=== PATIENT | male | born 1975 | race Caucasian/White ===

== ENCOUNTER 2017-07-16 10:54 | Observation (INO) ==
[2017-07-16] MEDS ORDERED: Ondansetron 4 MG/2 ML VIAL IVP ONE (11:25)
--- NOTE | 2017-07-16 11:25 | Emergency Department Note ---
Disposition Clinical Impression: Gastroenteritis, Tachycardia Disposition: Admitted As Inpatient Condition: Fair Referrals: Shirley Austin CNP [Primary Care Provider] - Forms: ED Satisfaction Letter Nausea/Vomiting/Diarrhea HPI - General Chief complaint: ED Nausea/Vomiting/Diarrhea Stated complaint: FEVER,VOMITING , DIARRHEA Time Seen by Provider: 07/16/17 11:19 Source: patient, family Mode of arrival: private vehicle Limitations: no limitations Nursing Notes Reviewed: Yes Vital Signs Reviewed: Yes - History of Present Illness HPI Narrative: The patient relates that he started to feel ill yesterday evening. He had a headache followed by nausea, vomiting and diarrhea. He's had decreased oral intake and progressive weakness and malaise. He has had very harsh cough is nonproductive. He denies chest soreness and severe body aches that are diffuse. He has had fevers and chills and a temperature that has been climbing this morning. He is not sure of any specific ill exposures that he states he waited in the waiting room at [facility] most of Saturday while his had a partial hysterectomy. He does not have any ongoing respiratory problems. He does feel short of breath and is requiring 2 L nasal cannula to maintain a saturation of 93%. Pt Subjective Complaint: nausea, vomiting, diarrhea Onset (ago): hour(s) Description of emesis: food contents Description of Diarrhea: water Associated Abdominal Pain: Yes If pain, Location of pain: diffuse Severity: mild, moderate Quality: cramping Consistency: intermittent Improves with: nothing Worsens with: nonthing Context: sick contacts Associated symptoms: Reports: myalgias, cough, fever/chills, headaches, loss of appetite, malaise, nausea/vomiting, shortness of breath, weakness. Denies: chest pain, diaphoresis, rash, dysuria, syncope - Related Data Allergies Allergy/AdvReac Type Severity Reaction Status Date / Time aspirin [ASA] Allergy Hives Verified 02/09/17 21:45 codeine Allergy Hives Verified 02/09/17 21:45 Penicillins [PCN] Allergy Hives Verified 02/09/17 21:45 All systems ED: reviewed and negative except as stated. Past Medical History - Past Medical History Attestation: Yes The following information was validated with the patient. Source: patient, obtained from family, nursing notes reviewed Medical history: Reports: GERD Surgical history: Reports: cholecystectomy, orthopedic, other (Right shoulder) Psychiatric history: Reports: anxiety - Social History Smoking Status: Current every day smoker Smokeless Tobacco Status: No Alcohol use: Reports: none Drug use: Reports: none Physical Exam - General Limitations: no limitations General appearance: alert, in distress (Pale and dyspneic) - Head Head exam: atraumatic, normocephalic, normal inspection - Eye Eye exam: Present: normal appearance, PERRL, EOMI, conjunctival injection. Absent: scleral icterus - ENT ENT exam: normal exam, normal oropharynx, mucous membranes moist - Neck Neck exam: Present: normal inspection, full ROM, trachea midline. Absent: tenderness, meningismus, lymphadenopathy - Chest Chest inspection: Present: normal inspection, symmetric chest wall rise - Respiratory Respiratory exam: Present: normal lung sounds bilaterally, other (Occasional harsh cough). Absent: respiratory distress, wheezes, prolonged expiratory phase - Cardiovascular Cardiovascular exam: Present: regular rate, normal rhythm, tachycardia, normal heart sounds - Abdominal Exam Abdominal exam: Present: soft, Non-Tender, normal bowel sounds. Absent: tenderness, distention, guarding, rebound, rigidity, Jose's sign, tenderness at McBurney's Point - Extremities Exam Extremities exam: Present: normal inspection, full ROM, normal capillary refill. Absent: tenderness, pedal edema, calf tenderness - Expanded Lower Extremity Exam Neurovascular/Tendon exam: Present: normal capillary refill. Absent: motor deficit, sensory deficit, tendon deficit Gait: observed and normal - Back Exam Back exam: Present: normal inspection, full ROM. Absent: tenderness, CVA tenderness (R), CVA tenderness (L) - Neurological Exam Neurological exam: Present: alert, oriented X3 - Psychiatric Psychiatric exam: Present: normal affect, normal mood - Skin Skin exam: Present: warm, dry, intact, pallor. Absent: cyanosis, diaphoresis Course Course Narrative: 1335: Lab results have been discussed with the patient. He continues with some intermittent gagging, tachycardia and generalize backaches, body aches and malaise. I feel he will need to continue with some IV fluid hydration as well as supplemental oxygenation as needed. I placed a page to Dr. Manrique to discuss this possible inpatient observation. 1338: Care is discussed with Dr. Manrique. Verbal orders have been obtained for this patient's observation. Vital Signs Temperature 102 F H 07/16/17 10:56 Pulse Rate 127 07/16/17 10:56 Respiratory Rate 18 07/16/17 10:56 Blood Pressure 138/80 07/16/17 10:56 O2 Sat by Pulse Oximetry 93 07/16/17 10:56 Temperature 101.2 F H 07/16/17 13:25 Pulse Rate 114 07/16/17 13:25 Respiratory Rate 27 07/16/17 13:25 Blood Pressure 116/78 07/16/17 13:25 O2 Sat by Pulse Oximetry 98 07/16/17 13:25 Oxygen Delivery Oxygen Delivery Nasal Cannula Nausea/Vomiting/Diarrhea - Differential Diagnosis Likely: food poisoning, gastroenteritis (Influenza), dehydration - Lab Data Lab results reviewed: Yes I reviewed the patient's lab results. Lab results narrative: Influenza A and influenza B are negative. Result diagrams: 07/16/17 11:35 07/16/17 11:35 Lab Results 07/16/17 07/16/17 07/16/17 Range/Units 11:35 11:35 11:35 WBC 7.5 (4.3-11.1) K/mcL RBC 5.13 (4.19-5.50) M/mcL Hgb 15.3 (12.9-16.9) g/dL Hct 44.2 (37.5-50.1) % MCV 86.2 (83.0-100.0) fL MCH 29.8 (28.0-33.3) pg MCHC 34.6 (31.6-35.5) g/dL RDW 13.4 (11.5-14.5) % Plt Count 194 (140-400) K/mcL MPV 10.5 (9.4-12.4) fL Immature Gran % 0.7 (0-4) % Seg Neutrophils % 83.1 % Lymphocytes % 6.6 % Monocytes % 8.3 % Eosinophils % 0.9 % Basophils % 0.4 % Neutrophils # 6.2 (1.6-8.9) K/mcL Lymphocytes # 0.5 L (0.6-4.6) K/mcL Monocytes # 0.6 (0.0-1.3) K/mcL Eosinophils # 0.1 (0.0-0.6) K/mcL Basophils # 0.0 (0.0-0.2) K/mcL Sodium 135 L (136-145) mEq/L Potassium 4.2 (3.5-5.1) mEq/L Chloride 104 (98-107) mEq/L BUN 12 (6-20) mg/dL Creatinine 1.08 (0.70-1.30) mg/dL Est GFR ( Amer) > 60 (> 60) Est GFR (Non-Af Amer) > 60 (> 60) BUN/Creatinine Ratio 11 (6-26) Glucose 119 H (70-105) mg/dL Calculated Osmolality 281 (280-300) Lactic Acid 2.2 (0.5-2.2) mmol/L Calcium 9.9 (8.6-10.3) mg/dL - Radiology Data Radiology results reviewed: Yes I reviewed the patient's radiology results. Single view chest x-ray is performed. This does not demonstrate evidence for infiltrate, effusion, pneumothorax, foreign body or heart failure. The cardiac silhouette is normal. I do not see abnormality to the osseous structures of the chest. This is on my interpretation. Impressions Chest X-Ray 07/16/17 11:25 IMPRESSION: No acute cardiopulmonary disease D/ / Andriy Carter MD / Andriy Carter MD Interpreting Provider: Andriy Carter MD
[2017-07-16] MEDS ORDERED: 0.9 % Sodium Chloride 1,000 ML IVC SCH ×4 (11:30→14:37)
[2017-07-16] MEDS ORDERED: *HR* OxyCODONE Immed Rel 5 MG TABLET PO ONE ×3 (12:16→14:37)
[2017-07-16 12:21] LABS: Basophils % 0.4 %; Eosinophils # 0.1 K/mcL (0.0-0.6); Eosinophils % 0.9 %; Hematocrit 44.2 % (37.5-50.1); Hemoglobin 15.3 g/dL (12.9-16.9); Immature Granulocytes % 0.7 % (0-4); Lymphocytes # 0.5 K/mcL (0.6-4.6); Lymphocytes % 6.6 %; Mean Corpuscular HGB Conc 34.6 g/dL (31.6-35.5); Mean Corpuscular Hemoglobin 29.8 pg (28.0-33.3); Mean Corpuscular Volume 86.2 fL (83.0-100.0); Mean Platelet Volume 10.5 fL (9.4-12.4); Monocytes # 0.6 K/mcL (0.0-1.3); Monocytes % 8.3 %; Neutrophils # 6.2 K/mcL (1.6-8.9); Platelet Count 194 K/mcL (140-400); Red Blood Count 5.13 M/mcL (4.19-5.50); Red Cell Distribution Width 13.4 % (11.5-14.5); Segmented Neutrophils % 83.1 %
[2017-07-16 13:20] LABS: BUN/Creatinine Ratio 11 (6-26); Blood Urea Nitrogen 12 mg/dL (6-20); Calcium 9.9 mg/dL (8.6-10.3); Chloride 104 mEq/L (98-107); Glucose 119 mg/dL (70-105); Osmolality,Calculated 281 (280-300); Potassium 4.2 mEq/L (3.5-5.1); Sodium 135 mEq/L (136-145); eGFR For Non-African Americans > 60 (> 60)
[2017-07-16] MEDS ORDERED: *HR* LORazepam 2 MG/ML VIAL IVP ONE (13:54)
[2017-07-16] MEDS ORDERED: *HR* HYDROcodone/Acet 5/325 mg TABLET PO PRN (14:37)
[2017-07-16] MEDS ORDERED: Ondansetron 4 MG/2 ML VIAL IVP PRN (14:37)
[2017-07-16] MEDS ORDERED: Naloxone 0.4 MG/ML INJ IVP PRN (14:37)
[2017-07-16] MEDS ORDERED: Diphenoxylate/Atropine 1 TAB TABLET PO PRN (14:37)
[2017-07-16] MEDS: Acetaminophen 325 MG TABLET PO PRN ×2 (15:22→23:46)
[2017-07-16 15:27] LABS: Carbon Dioxide 24 mEq/L (23-29)
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
[2017-07-16] MEDS: 0.45 % Sodium Chloride w/KCl 20 MEQ/1,000 ML MLS IVC SCH (17:38)
[2017-07-16] MEDS: Doxycycline 100 MG in 0.9 % Sodium Chloride Mini Bag 100 ML IVPB SCH (18:32)
[2017-07-17] MEDS ORDERED: *HR* HYDROcodone/Acet 5/325 mg TABLET PO PRN (00:01)
[2017-07-17] MEDS: 0.45 % Sodium Chloride w/KCl 20 MEQ/1,000 ML MLS IVC SCH ×3 (02:09→20:47)
[2017-07-17] MEDS: *HR* OxyCODONE/APAP 5/325 TABLET PO PRN ×5 (04:47→22:43)
[2017-07-17 05:17] LABS: Basophils % 0.4 %; Hemoglobin 13.3 g/dL (12.9-16.9); Immature Granulocytes % 0.4 % (0-4); Lymphocytes # 0.7 K/mcL (0.6-4.6); Lymphocytes % 13.1 %; Mean Corpuscular Hemoglobin 30.4 pg (28.0-33.3); Mean Corpuscular Volume 86.8 fL (83.0-100.0); Mean Platelet Volume 10.7 fL (9.4-12.4); Monocytes # 0.6 K/mcL (0.0-1.3); Monocytes % 11.3 %; Neutrophils # 3.8 K/mcL (1.6-8.9); Platelet Count 141 K/mcL (140-400); Red Blood Count 4.38 M/mcL (4.19-5.50); Red Cell Distribution Width 13.9 % (11.5-14.5); Segmented Neutrophils % 74.8 %
[2017-07-17 05:37] LABS: Alanine Aminotransferase 22 Units/L (7-52); Albumin 3.6 g/dL (3.5-5.7); Albumin/Globulin Ratio 1.4 (1.1-2.2); Alkaline Phosphatase 82 Units/L (34-104); Aspartate Amino Transferase 26 Units/L (13-39); BUN/Creatinine Ratio 11 (6-26); Bilirubin,Total 0.3 mg/dL (0.3-1.0); Blood Urea Nitrogen 12 mg/dL (6-20); Calcium 8.5 mg/dL (8.6-10.3); Carbon Dioxide 22 mEq/L (23-29); Chloride 104 mEq/L (98-107); Globulin 2.6 g/dL (2.4-3.5); Glucose 100 mg/dL (70-105); Magnesium 1.6 mg/dL (1.6-2.6); Osmolality,Calculated 274 (280-300); Potassium 4.3 mEq/L (3.5-5.1); Sodium 132 mEq/L (136-145); Total Protein 6.2 g/dL (6.4-8.9); eGFR For Non-African Americans > 60 (> 60)
[2017-07-17] MEDS: Doxycycline 100 MG in 0.9 % Sodium Chloride Mini Bag 100 ML IVPB SCH ×2 (06:20→17:35)
--- NOTE | 2017-07-17 11:23 | Internal Med Progress Note ---
Date of Encounter: 07/17/17 Time of Encounter: 10:45 - Assessment and plan (1) Gastroenteritis Current Visit: Yes Status: Acute Assessment and plan: July 17. Continue IV fluids. Will advance diet. Continue antiemetics when necessary. (2) Tachycardia Current Visit: Yes Status: Acute Assessment and plan: July 17. Improved. Continue present treatment. - Subjective Interval history: July 17. He has no new complaints and states he feels minimally better. He still has nausea and vomiting but denies diarrhea. - Constitutional Vitals: Temp Pulse Resp BP Pulse Ox 101.0 F H 101 20 106/67 94 07/17/17 10:41 07/17/17 10:41 07/17/17 10:41 07/17/17 10:41 07/17/17 10:41 Exam: He is resting comfortably in bed and appears in no acute distress. His heart rate is approximately 100/m at rest. He is more awake and talkative than yesterday. I reviewed his medications and lab results. Internal Medicine: Result - Labs CBC & Chem 7: 07/17/17 04:24 07/17/17 04:24 Labs: Short CBC 07/17/17 Range/Units 04:24 WBC 5.1 (4.3-11.1) K/mcL Hgb 13.3 D (12.9-16.9) g/dL Hct 38.0 (37.5-50.1) % Plt Count 141 (140-400) K/mcL Neutrophils # 3.8 (1.6-8.9) K/mcL BMP 07/17/17 04:24 Sodium 132 L Potassium 4.3 Chloride 104 Carbon Dioxide 22 L BUN 12 Creatinine 1.12 Glucose 100 Calcium 8.5 L Liver Function 07/17/17 Range/Units 04:24 Total Bilirubin 0.3 (0.3-1.0) mg/dL AST 26 (13-39) Units/L ALT 22 (7-52) Units/L Alkaline Phosphatase 82 (34-104) Units/L Albumin 3.6 (3.5-5.7) g/dL - VTE Documentation of Mechanical Device: Graduated compression elastic hosiery Consult Discharge Plan - Plan Referrals: Shirley Austin, [employer] [Primary Care Provider] - 1 week
[2017-07-17] MEDS ORDERED: Ondansetron 4 MG/2 ML VIAL IVP PRN (11:25)
[2017-07-17] MEDS: Acetaminophen 325 MG TABLET PO PRN ×2 (13:05→20:46)
[2017-07-17] MEDS: Mag Hydrox/Al Hydrox/Simeth 30 ML UDC PO PRN (20:43)
[2017-07-18] MEDS: Mag Hydrox/Al Hydrox/Simeth 30 ML UDC PO PRN (00:25)
[2017-07-18] MEDS: 0.45 % Sodium Chloride w/KCl 20 MEQ/1,000 ML MLS IVC SCH (04:37)
[2017-07-18] MEDS: *HR* OxyCODONE/APAP 5/325 TABLET PO PRN ×2 (05:44→08:58)
[2017-07-18] MEDS: Doxycycline 100 MG in 0.9 % Sodium Chloride Mini Bag 100 ML IVPB SCH (05:45)
[2017-07-18 06:51] VITALS: BP 116/65
--- NOTE | 2017-07-18 09:53 | Discharge Summary ---
Date of Encounter: 07/18/17 Time of Encounter: 09:45 - Discharge Diagnosis (1) Gastroenteritis Priority: Primary Status: Acute (2) Tachycardia Priority: Secondary Status: Acute - Discharge Medications Prescriptions: Promethazine [Phenergan] 12.5 mg PO Q6HR PRN #6 tablet PRN Reason: Nausea Doxycycline 100 mg PO BID #4 capsule Lactobacillus [Culturelle] 1 each PO BID #4 cap.sprink Home Medications: Doxycycline 100 mg PO BID #4 capsule 07/18/17 [Rx] Lactobacillus [Culturelle] 1 each PO BID #4 cap.sprink 07/18/17 [Rx] Promethazine [Phenergan] 12.5 mg PO Q6HR PRN #6 tablet 07/18/17 [Rx] Allergies/Adverse Reactions: 3 Allergy/AdvReac Type Severity Reaction Status Date / Time aspirin [ASA] Allergy Hives Verified 02/09/17 21:45 codeine Allergy Hives Verified 02/09/17 21:45 Penicillins [PCN] Allergy Hives Verified 02/09/17 21:45 Date of admission: 07/16/17 14:27 Primary care physician: Shirley Austin CNP - Patient Status Disposition: Home, Self-Care Condition: Fair Functional capacity at discharge: independent ambulation Overall status at discharge: patient is progressing back to baseline - Discharge Instructions Follow Up With: Shirley Austin CNP [Primary Care Provider] - 1 week - Diet and Activity Activity: resume usual activities as tolerated Diet: advance to your usual diet Hospital course: Mr. Garcia is a 42 year old male who came to emergency room stating he had onset of significant cough without productivity, fevers and chills, and vomiting and diarrhea without visible blood in the last 24 hours. When he did not seem to be improving he came to emergency room. He was evaluated and was felt to have gastroenteritis. Tachycardia was present. He was admitted to [facility] floor for ongoing care needs. Initial orders were written by the emergency room physician. I saw him on July 16 and performed history and physical. He was given IV fluids and antiemetics as needed. His temperature spikes lessened and he was able to tolerate advanced diet. He still had occasionall vomiting and diarrhea episodes but on July 18 he felt he was stable for discharge home. He will continue with doxycycline and lactobacillus for 2 additional days at discharge. He will be given Phenergan for prn use. He will follow with his PCP Shirley Austin CNP within one week. I encouraged him to become a nonsmoker. - Time Spent with Patient Total time spent providing and/or coordinating discharge services: - Constitutional Vitals: Temp Pulse Resp BP Pulse Ox 98.8 F 102 18 116/65 94 07/18/17 06:50 07/18/17 06:50 07/18/17 06:50 07/18/17 06:50 07/18/17 06:50 - VTE Documentation of Mechanical Device: Graduated compression elastic hosiery
== END 2017-07-18 10:44 | disposition home or self-care (01) ==
LOC: INPPIK 10:54 → EMEROOPIK 10:54 → INPPIK 14:57
PROVIDERS: ADMIT Emergency Medicine; ATTEND Internal Medicine